=== PATIENT | male | born 1995 | race Caucasian/White ===

== ENCOUNTER 2022-03-31 14:08 | Emergency (ER) | payer OTHER ==
[~2022-03-31] VITALS: Ht 180.3 cm; Wt 111.1 kg
[2022-03-31 14:50] VITALS: BP 112/82
[2022-03-31] MEDS ORDERED: LOPE-231 PO (15:39)
[2022-03-31] MEDS ORDERED: CIPR250T6 PO (15:39)
[2022-03-31 15:44] VITALS: BP 111/75
--- NOTE | 2022-03-31 15:44 | NUR ---
Patient discharged with v/s stable. Written and verbal after care instructions given and explained. Patient alert, oriented and verbalized understanding of instructions. Ambulatory with steady gait. All questions addressed prior to discharge. ID band removed. Patient advised to follow up with PMD. Rx of ANTI-DIARRHEAL given. Patient educated on indication of medication including possible reaction and side effects. Opportunity to ask questions provided and answered.
--- NOTE | 2022-03-31 15:50 | NUR ---
PT BIB [facility] C/O ABD PAIN, DIARRHEA X 5 DAYS.SKIN IS INTACT, PINK/WARM/DRY; AAOX4, PERRL, WITH EVEN AND STEADY GAIT; BS ACTIVE X4, NO TENDERNESS TO PALPATION, NO HEPATOSPLENOMEGALLY PALPATED, RESONANT TO PERCUSSION; PT DENIES ANY FEVER, CP, SOB, OR COUGH AT THIS TIME; PT STATES 0/10 PAIN AT THIS TIME; VSS; PATIENT POSITIONED FOR COMFORT; HOB ELEVATED; BEDRAILS UP X2; BED DOWN.
[2022-04-01] MEDS ORDERED: LOPE1SOL12 PO (12:36)
[2022-04-01] MEDS ORDERED: CIPR500P4 PO (12:36)
== END 2022-03-31 15:44 | disposition home or self-care (01) ==
LOC: MED 14:08
DX: R19.7 Diarrhea, unspecified (principal); R11.10 Vomiting, unspecified; Z79.899 Other long term (current) drug therapy
CPT/HCPCS: 99283